=== PATIENT | male | born 2000 | race Caucasian/White ===

== ENCOUNTER 2021-04-28 17:50 | Emergency (ER) | payer SELFPAY ==
[~2021-04-28] VITALS: Ht 167.6 cm; Wt 60.0 kg
[2021-04-28 18:10] VITALS: BP 148/82; TEMP 98.2
[2021-04-28] MEDS ORDERED: DOXYCYCLINE 10100 MG PO (19:53)
[2021-04-28 20:04] VITALS: PULSE 100
== END 2021-04-28 20:01 | disposition home or self-care (01) ==
LOC: COL.ER 17:50
DX: R59.0 Localized enlarged lymph nodes (principal); L70.0 Acne vulgaris

== ENCOUNTER 2021-06-12 23:45 | Emergency (ER) | payer SELFPAY ==
[~2021-06-12] VITALS: Ht 167.6 cm; Wt 60.0 kg
[~2021-06-12 23:45] MED LIST: DOXYCYCLINE 10100 MG PO
[2021-06-12 23:56] VITALS: TEMP 98.8
[2021-06-13 01:25] LABS: BASO # 0.1 K/mm3 (0.0-0.2); BASO % 0.7 % (0.0-2.0); EOS # 0.2 K/mm3 (0.0-0.7); EOS % 1.9 % (0.0-4.0); GRAN # 5.9 K/mm3 (1.4-6.5); HEMATOCRIT 41.3 % (42.0-52.0); HEMOGLOBIN 13.8 g/dl (13.5-18.0); LYMPH # 3.4 K/mm3 (1.2-3.4); LYMPH % 33.4 % (20.0-51.0); MEAN CELL VOLUME 89 fl (80.0-100.0); MEAN CORPUSCULAR HEMOGLOBIN 30 pg (27-31); MEAN CORPUSCULAR HGB CONC 33 g/dl (33.0-37.0); MEAN PLATELET VOLUME 9.2 fl (7.4-10.4); MONO # 0.6 K/mm3 (0.1-0.6); MONO % 5.8 % (1.7-9.3); PLATELET COUNT 268 K/mm3 (130-400); RED BLOOD COUNT 4.63 M/mm3 (4.20-5.60); REDCELL DISTRIBUTION WIDTH-CV 11.8 % (11.5-14.5)
[2021-06-13 01:40] LABS: ALBUMIN 4.6 gm/dL (3.5-5.0); BILIRUBIN,TOTAL 0.2 mg/dL (0.2-1.2); CALCIUM 9.6 mg/dL (8.4-10.2); CREATININE, serum 0.92 mg/dL (0.72-1.25); POTASSIUM 3.5 mmol/L (3.5-4.5); TOTAL PROTEIN 8.3 gm/dL (6.2-8.1)
[2021-06-13 02:27] VITALS: BP 127/84; PULSE 82
== END 2021-06-13 02:26 | disposition home or self-care (01) ==
LOC: COL.ER 23:45
PROVIDERS: Nurse Practitioner
DX: R42 Dizziness and giddiness (principal)
CPT/HCPCS: J7030

== ENCOUNTER 2023-10-30 21:31 | Emergency (ER) | payer SELFPAY ==
[~2023-10-30] VITALS: Ht 170.2 cm; Wt 63.6 kg
[2023-10-30 21:55] VITALS: TEMP 97.3
[2023-10-30 23:22] LABS: BASO % 0.4 % (0.0-2.0); EOS # 0.2 K/mm3 (0.0-0.7); EOS % 2.1 % (0.0-4.0); GRAN # 4.7 K/mm3 (1.4-6.5); HEMATOCRIT 38.6 % (42.0-52.0); LYMPH # 1.5 K/mm3 (1.2-3.4); MEAN CELL VOLUME 89 fl (80.0-100.0); MEAN CORPUSCULAR HEMOGLOBIN 30 pg (27-31); MEAN CORPUSCULAR HGB CONC 34 g/dl (33.0-37.0); MEAN PLATELET VOLUME 9.3 fl (7.4-10.4); MONO # 0.7 K/mm3 (0.1-0.6); MONO % 9.2 % (1.7-9.3); PLATELET COUNT 194 K/mm3 (130-400); RED BLOOD COUNT 4.34 M/mm3 (4.20-5.60); REDCELL DISTRIBUTION WIDTH-CV 11.7 % (11.5-14.5)
[2023-10-30 23:45] LABS: ALANINE AMINOTRANSFERASE 24 U/L (0-55); ALKALINE PHOSPHATASE 85 U/L (40-150); ANION GAP 12 mmol/L (7-16); AST,SGOT 22 U/L (5-34); BILIRUBIN,TOTAL 0.4 mg/dL (0.2-1.2); BLOOD UREA NITROGEN 11 mg/dL (9-21); CALCIUM 9.6 mg/dL (8.4-10.2); CHLORIDE 104 mEq/L (98-107); CREATININE, serum 0.97 mg/dL (0.72-1.25); GLUCOSE 111 mg/dL (70-99); POTASSIUM 3.8 mEq/L (3.5-4.5); SODIUM 141 mEq/L (136-145); TOTAL PROTEIN 7.9 g/dl (6.2-8.1)
[2023-10-30 23:58] LABS: TROPONIN-I < 0.010 ng/mL (0.00-0.033)
[2023-10-31] MEDS ORDERED: Iohexol 300 - 100 ML VIAL IV ONE (00:21)
[2023-10-31] MEDS ORDERED: NS 100 ML IV ONE (00:22)
[2023-10-31] MEDS ORDERED: Ibuprofen 400 MG TAB PO ONE (01:30)
[2023-10-31] MEDS ORDERED: Acetaminophen 325 MG TAB PO ONE (01:30)
[2023-10-31 02:10] VITALS: BP 114/87; PULSE 86
== END 2023-10-31 02:10 | disposition home or self-care (01) ==
LOC: COL.ER 21:31
PROVIDERS: Nurse Practitioner Primary Care
DX: R91.8 Other nonspecific abnormal finding of lung field (principal); F17.290 Nicotine dependence, other tobacco product, uncomplicated
CPT/HCPCS: Q9967

== ENCOUNTER 2023-11-03 19:11 | Emergency (ER) | payer SELFPAY ==
[~2023-11-03] VITALS: Ht 170.2 cm; Wt 63.6 kg
[2023-11-03 19:19] VITALS: BP 126/82; TEMP 98.2
[2023-11-03] MEDS ORDERED: LEXAPRO20 MG PO (19:36)
[2023-11-03] MEDS ORDERED: Escitalopram 10 MG TAB PO ONE (19:45)
[2023-11-03 19:47] VITALS: PULSE 79
== END 2023-11-03 19:47 | disposition home or self-care (01) ==
LOC: COL.ER 19:11
DX: Z76.0 Encounter for issue of repeat prescription (principal); F42.9 Obsessive-compulsive disorder, unspecified; Z79.899 Other long term (current) drug therapy